=== PATIENT | male | born 1980 | race African-American/Black ===

== ENCOUNTER 2016-11-01 10:09 | Emergency (ER) | payer MEDICAID, OTHER ==
[~2016-11-01] VITALS: Ht 188 cm; Wt 84.0 kg
[2016-11-01 10:11] VITALS: BP 123/75
[2016-11-01] MEDS ORDERED: KETOROLAC 30MG/ML VIAL IM ONE (10:30)
== END 2016-11-01 13:02 | disposition home or self-care (01) ==
LOC: ER 10:42
DX: S00.93XA Contusion of unspecified part of head, initial encounter (principal); F17.200 Nicotine dependence, unspecified, uncomplicated; W01.0XXA Fall on same level from slipping, tripping and stumbling without subsequent striking against object, initial encounter; Y93.89 Activity, other specified; Y92.89 Other specified places as the place of occurrence of the external cause; Y99.8 Other external cause status
CPT/HCPCS: 96372; 99283; J1885